=== PATIENT | female | born 1980 | race Caucasian/White ===

== ENCOUNTER 2020-11-09 09:09 | Emergency (ER) | payer BC, SELFPAY ==
[2020-11-09 09:27] VITALS: BP 119/59; PULSE 112; RESP 16; TEMP 36.7; O2SAT 99
--- NOTE | 2020-11-09 09:44 | ED.FEMALEGU ---
HPI - Female Genitourinary General Chief complaint: Urogenital-Female Stated complaint: uti Time Seen by Provider: 11/09/20 09:44 Source: patient, RN notes reviewed and old records reviewed Mode of arrival: ambulatory Limitations: no limitations History of Present Illness HPI Narrative: 40-year-old female who presents to [facility] with complaints of lower back pain, suprapubic pain, burning with urination and also has noted blood in her urine since last night. Patient denies any known fever chills or sweats, denies any nausea or vomiting, denies any vaginal discharge or any concern for STDs.Patient has 3+ glucose in her urine and also trace ketones, patient reports that she is diabetic and admits to not checking her sugar regularly, taking Jardiance and metformin has appointment with PCP next week. MD elicited complaint: dysuria and other (back pain and supra pubic pain) Related Data Allergies Allergy/AdvReac Type Severity Reaction Status Date / Time codeine Allergy Hives Verified 11/09/20 10:08 ibuprofen Allergy Anaphylactic Verified 11/09/20 10:10 Shock Review of Systems Review of Systems: CONSTITUTIONAL: Denies fever, chills, or sweats. EYES: Denies visual changes, redness, or discharge. ENT: Denies rhinorrhea, congestion, sore throat, or otalgia. CARDIOVASCULAR: Denies chest pain, palpitations, or edema. RESPIRATORY: Denies cough or dyspnea. GASTROINTESTINAL: Positive suprapubic abdominal pain,no nausea, vomiting, or diarrhea. GENITOURINARY: Positive dysuria and hematuria. SKIN: Denies rash or itching. MUSCULOSKELETAL: Positive for low back pain, joint pain, or myalgia. NEUROLOGIC: Denies headache, numbness, or weakness. PSYCHIATRIC: Positive history of anxiety or depression. All systems reviewed & are unremarkable except as noted in HPI and below PMFSH Past Medical History Medical History (Updated 11/09/20 @ 10:26 by Ling Townsend NP) Anxiety and depression Diabetes Elevated cholesterol Fracture of ankle Surgical History Surgical History (Updated 11/09/20 @ 10:12 by Ling Townsend NP) History of dilatation and curettage History of nasal surgery nasal fracture repair Previous section Family History Family History (Updated 11/09/20 @ 10:13 by Ling Townsend NP) Father Diabetes mellitus Heart disease Father Acute myocardial infarction Grandparent Diabetes mellitus Acute myocardial infarction Social History Social History (Updated 11/09/20 @ 10:14 by Ling Townsend NP) Smoking packs per day: 0.5 Smoking cigarettes per day: 10.0 Years smoked: 26 Smoking pack-years: 13.00 Smoking status: Current every day smoker Tobacco type: cigarettes Alcohol intake: current Alcohol use details: social Substance use: never Living arrangements: with family Gender identity (if verbalized by the patient): Female Comments At time of signature, agree with nursing past medical, surgical, social and family history. There is no relevant family history pertinent to the presenting complaint Exam Narrative: GENERAL: Well-appearing, well-nourished, and in no acute distress. HEAD: Normocephalic, atraumatic. EYES: PERRLA and EOMI. ENT: Nares clear, no rhinorrhea or epistaxis. Mucous membranes moist.TM's mat with good lght reflex, throat normal with no lesions or exudates or tonsil swelling NECK: Supple. no lymphadenopathy CHEST: Clear to auscultation. No respiratory distress.SAO2 99% on room air HEART: Regular rate and rhythm. No murmur heard. Normal peripheral pulses. ABDOMEN: Soft, tender suprapubic region of abdomen, nondistended, normal active bowel sounds. EXTREMITIES: Normal range of motion. No edema.positive for low back pain. SKIN: Warm, dry, no rash. NEURO: No focal deficits. Alert and oriented x3. Course Vital Signs Vital signs: Vital Signs Temperature 36.7 C 11/09/20 09:27 Pulse Rate 112 H 11/09/20 09:27 Respiratory Rate 16 11/09/20 0
[2020-11-09 10:26] LABS: Glucose Point of Care 147 mg/dl (65-105)
== END 2020-11-09 10:37 | disposition home or self-care (01) ==
PROVIDERS: Emergency Provider Registered Nurse; PCP Physician Assistant
DX: N39.0 Urinary tract infection, site not specified (principal); F17.210 Nicotine dependence, cigarettes, uncomplicated; E11.9 Type 2 diabetes mellitus without complications; E78.00 Pure hypercholesterolemia, unspecified
CPT/HCPCS: 81003; 82948; 87077; 87086; 87088; 87186; 99213; G0463

== ENCOUNTER 2020-12-11 08:26 | Emergency (ER) | payer BC, SELFPAY ==
[2020-12-11 08:42] VITALS: BP 114/76; PULSE 76; RESP 17; TEMP 36.2; O2SAT 100
--- NOTE | 2020-12-11 08:52 | ED.GENADULT ---
HPI - General Adult General Chief complaint: Ear Stated complaint: ear/facial pain Source: patient Mode of arrival: ambulatory Limitations: no limitations History of Present Illness HPI narrative: Patient is a 40-year-old female who presents to the [facility] via POV for evaluation of right ear pain that has been present for approximately 2 days. Additionally, she reports facial swelling, sinus pain, dental pain, fatigue, nasal congestion, and rhinorrhea. She states she has been experiencing the symptoms for approximately 5 days. Tylenol provides minimal relief. Nothing worsens symptoms. She reports she was exposed to Covid from someone at work. She works at a snf. She tests 3 times a week. She states her last test was yesterday and that it was negative. She is fully vaccinated against Covid. Related Data Home Medications Medication Instructions Recorded Confirmed metformin 500 mg PO DIRECTED 12/11/20 12/11/20 sertraline 50 mg PO DIRECTED 12/11/20 12/11/20 simvastatin 40 mg PO DAILY 12/11/20 12/11/20 Allergies Allergy/AdvReac Type Severity Reaction Status Date / Time codeine Allergy Hives Verified 11/09/20 10:08 ibuprofen Allergy Anaphylactic Verified 11/09/20 10:10 Shock Review of Systems Review of Systems: Denies history of COPD, bronchitis, asthma, and pneumonia. Pertinent negatives: fever, sweats, chills, change in appetite, skin color changes, headache, dizziness, lymphadenopathy, ear drainage, tinnitus, vertigo, chest pain, heart murmurs, heart palpitations, shortness of breath, wheezing, cyanosis, hemoptysis, hoarseness, orthopnea, pleuritic pain, nausea, vomiting, diarrhea, and myalgias. [facility] Past Medical History Medical History Anxiety and depression Diabetes Elevated cholesterol Fracture of ankle Surgical History Surgical History History of dilatation and curettage History of nasal surgery nasal fracture repair Previous section Family History Family History Father Diabetes mellitus Heart disease Father Acute myocardial infarction Grandparent Diabetes mellitus Acute myocardial infarction Social History Social History Smoking packs per day: 0.5 Smoking cigarettes per day: 10.0 Years smoked: 26 Smoking pack-years: 13.00 Smoking status: Current every day smoker Tobacco type: cigarettes Alcohol intake: current Alcohol use details: social Substance use: never Gender identity (if verbalized by the patient): Female Comments I have reviewed and agree with the patient's past medical, surgical, social, and family hx as documented by the RN. There is no relevant family history pertinent to the presenting complaint. Exam Narrative: GENERAL: Well-appearing, well-nourished, and in no acute distress. HEAD: Normocephalic, atraumatic. Right maxillary is moderately swollen and tender. EYES: PERRLA and EOMI. No evidence of erythema, swelling, or drainage. ENT: Bilateral external ears and ear canals normal. Moderate amount of clear effusion noted to left TM. Right TM is bulging with marked erythema and opaque fluid. No TM perforation. Nares clear, no rhinorrhea or epistaxis. Bilateral turbinates without erythema/ swelling. Mucous membranes moist and pink. Uvula is midline without erythema and swelling. No evidence of petechial rash, cobblestoning, lesions, ulcers, erythema, swelling, exudates, peritonsillar abscess, tenting, or drooling. Breath odor and voice normal. NECK: Supple. No Lymphadenopathy or nuchal rigidity appreciated. CHEST: Bilateral lung gray are clear to auscultation. No respiratory distress. No evidence of cough or pleuritic cp upon examination. HEART: Regular rate and rhythm. No m
== END 2020-12-11 09:23 | disposition home or self-care (01) ==
PROVIDERS: Emergency Provider Nurse Practitioner Family
DX: H66.001 Acute suppurative otitis media without spontaneous rupture of ear drum, right ear (principal); J01.00 Acute maxillary sinusitis, unspecified; F17.210 Nicotine dependence, cigarettes, uncomplicated; E11.9 Type 2 diabetes mellitus without complications; E78.00 Pure hypercholesterolemia, unspecified; F41.9 Anxiety disorder, unspecified; F32.A Depression, unspecified
CPT/HCPCS: 99213; G0463

== ENCOUNTER 2021-02-06 17:05 | Outpatient (CLI) | payer BC, SELFPAY ==
--- NOTE | ~2021-02-06 | US_ITS ---
EXAMINATION: US thyroid EXAM DATE: 02/06/2021 17:50 INDICATION: Nontoxic goiter. TECHNIQUE: Multiple grayscale and Doppler images of the thyroid were obtained (by a technologist who performed the scan) and subsequently reviewed. Individual nodules and recommendations may be reporte d in accordance with TI-RADS system as designated by the 2017 ACR White Paper TI-RADS committee. The re is no prior study for comparison. FINDINGS: The right thyroid lobe measures 3.7 x 1.6 x 1.8 cm, the left measures 4.7 x 1.2 x 1.3 cm. Mildly hete rogeneous thyroid echogenicity with several subcentimeter right thyroid lobe nodules, not likely clin ically significant. Measurements are within normal size limits. IMPRESSION: Unremarkable thyroid ultrasound exam. Reviewed, dictated and finalized at location A. ITAL CHAPLAIN
== END 2021-02-06 17:06 | disposition home or self-care (01) ==
PROVIDERS: PCP Physician Assistant; Visit Provider Physician Assistant
DX: E04.9 Nontoxic goiter, unspecified (principal)
CPT/HCPCS: 76536

== ENCOUNTER 2021-04-27 17:39 | Emergency (ER) | payer BC, SELFPAY ==
--- NOTE | ~2021-04-27 | XR_ITS ---
EXAMINATION: XR ankle RT min 3V INDICATION: Right ankle pain TECHNIQUE: Four views of the right ankle are obtained. COMPARISON: None available FINDINGS: Ankle soft tissue swelling is present. Bone alignment is normal. No fracture is identified. Posterior and plantar calcaneal enthesophytes are noted. IMPRESSION: 1. Ankle soft tissue swelling without acute osseous abnormality identified. Reviewed, dictated and finalized at location F. RAFT REFUELLER
[2021-04-27 17:42] VITALS: BP 114/60; PULSE 94; RESP 16; TEMP 36.1; O2SAT 100
--- NOTE | 2021-04-27 17:46 | ED.LOWEXIN ---
HPI - Extremity Injury (Lower) General Chief Complaint: Extremity Injury, Lower Stated Complaint: Right Ankle Injury Time Seen by Provider: 04/27/21 17:43 History of Present Illness HPI Narrative: 40-year-old female presents the emergency room status post twisting her ankle. Patient states it was a inversion injury. Patient is ambulatory currently. History of ankle fracture as a child. Related Data Home Medications Medication Instructions Recorded Confirmed metformin 500 mg PO DIRECTED 12/11/20 12/11/20 sertraline 50 mg PO DIRECTED 12/11/20 12/11/20 simvastatin 40 mg PO DAILY 12/11/20 12/11/20 Allergies Allergy/AdvReac Type Severity Reaction Status Date / Time codeine Allergy Hives Verified 04/27/21 17:47 ibuprofen Allergy Anaphylactic Verified 04/27/21 17:47 Shock Review of Systems Review of Systems: CONSTITUTIONAL: Denies fever, chills, or sweats. EYES: Denies visual changes, redness, or discharge. ENT: Denies rhinorrhea, congestion, sore throat, or otalgia. CARDIOVASCULAR: Denies chest pain, palpitations, or edema. RESPIRATORY: Denies cough or dyspnea. GASTROINTESTINAL: Denies abdominal pain, nausea, vomiting, or diarrhea. GENITOURINARY: Denies dysuria or hematuria. SKIN: Denies rash or itching. MUSCULOSKELETAL: Denies back pain, joint pain, or myalgia. Right ankle pain. NEUROLOGIC: Denies headache, numbness, dizziness, or weakness. PSYCHIATRIC: Denies anxiety or depression. [facility] Past Medical History Medical History Anxiety and depression Diabetes Elevated cholesterol Fracture of ankle Surgical History Surgical History History of dilatation and curettage History of nasal surgery nasal fracture repair Previous section Family History Family History Father Diabetes mellitus Heart disease Father Acute myocardial infarction Grandparent Diabetes mellitus Acute myocardial infarction Social History Social History Smoking packs per day: 0.5 Smoking cigarettes per day: 10.0 Years smoked: 26 Smoking pack-years: 13.00 Smoking status: Current every day smoker Tobacco type: cigarettes Alcohol intake: current Alcohol use details: social Substance use: never Gender identity (if verbalized by the patient): Female Exam Narrative: GENERAL: Well-appearing, well-nourished, and in no acute distress. HEAD: Normocephalic, atraumatic. EYES: PERRLA and EOMI. ENT: Nares clear, no rhinorrhea or epistaxis. Mucous membranes moist. Oropharynx without tonsillar hypertrophy exudate or other lesions. Bilateral TMs pearly domínguez nonbulging NECK: Supple. No adenopathy or masses. No carotid bruits or JVD CHEST: Clear to auscultation. No respiratory distress. No wheezes rales or rhonchi HEART: Regular rate and rhythm. No murmur heard. Normal peripheral pulses. ABDOMEN: Soft, nontender, nondistended, normal active bowel sounds. EXTREMITIES: Normal range of motion. No edema. Right ankle: Tenderness to the talofibular ligament, soft tissue swelling to the right lateral malleolus, no joint laxity. Neurovascular distally intact. SKIN: Warm, dry, no rash. NEURO: No focal deficits. Alert and oriented x3. PSYCH: Normal mood and affect. Course Course Emergency Course: Plain films of the right ankle demonstrate no acute bony normalities. Patient refused Vern bandage for comfort. Will discharge patient with right ankle sprain. Discharge Plan Discharge Clinical Impression: Ankle sprain and strain Patient Disposition: Home, Self-Care Condition: Stable Instructions: Antibiotic Form Additional Instructions: Wear Vern bandage for comfort. Tylenol and ibuprofen as needed for pain. Prescriptions: No Action metformin 500 mg tablet 5
== END 2021-04-27 18:46 | disposition home or self-care (01) ==
PROVIDERS: Emergency Provider Nurse Practitioner Family; PCP Physician Assistant
DX: S93.401A Sprain of unspecified ligament of right ankle, initial encounter (principal); S96.911A Strain of unspecified muscle and tendon at ankle and foot level, right foot, initial encounter; E11.9 Type 2 diabetes mellitus without complications; E78.00 Pure hypercholesterolemia, unspecified; F41.9 Anxiety disorder, unspecified; F32.A Depression, unspecified; Z79.84 Long term (current) use of oral hypoglycemic drugs; F17.210 Nicotine dependence, cigarettes, uncomplicated
CPT/HCPCS: 73610; 99283

== ENCOUNTER 2021-05-03 14:45 | Outpatient (CLI) | payer BC, SELFPAY ==
--- NOTE | ~2021-05-03 | XR_ITS ---
XR chest 2V DATE: 05/03/2021 15:04 INDICATION: Chronic cough since Covid infection in March TECHNIQUE: PA and lateral views COMPARISON: None FINDINGS: Normal heart size. No hilar or mediastinal enlargement. No pulmonary infiltrate or consolid ation, pleural effusion or pulmonary vascular congestion or pneumothorax. Included skeletal structures are unremarkable. IMPRESSION: No active cardiopulmonary disease Reviewed, dictated and finalized at location A. SERVICER
== END 2021-05-03 14:46 | disposition home or self-care (01) ==
PROVIDERS: PCP Physician Assistant; Visit Provider Physician Assistant
DX: R05.3 Chronic cough (principal)
CPT/HCPCS: 71046

== ENCOUNTER 2021-06-28 14:50 | Emergency (ER) | payer BC, SELFPAY ==
[2021-06-28 15:23] VITALS: BP 125/72; PULSE 103; RESP 16; TEMP 37; O2SAT 99
--- NOTE | 2021-06-28 15:39 | ED.URI ---
HPI - URI/Sore Throat General Chief Complaint: Upper Respiratory Infection Stated Complaint: sore throat Time Seen by Provider: 06/28/21 15:40 Source: patient and RN notes reviewed Mode of arrival: ambulatory Limitations: no limitations History of Present Illness HPI Narrative: 40-year-old female presented for complaint of sore throat, fever, nausea and diarrhea for 3 days. Fever was 100.6 this morning, she took Tylenol for symptoms. She denies known sick contacts. She is not vaccinated for COVID or flu. She denies cough, shortness of breath, wheezing, dizziness. MD elicited complaint: sore throat Related Data Home Medications Medication Instructions Recorded Confirmed metformin 500 mg PO DIRECTED 12/11/20 06/28/21 sertraline 50 mg PO DIRECTED 12/11/20 06/28/21 simvastatin 40 mg PO DAILY 12/11/20 06/28/21 blood sugar diagnostic [OneTouch 06/28/21 06/28/21 Ultra Test] blood sugar diagnostic [OneTouch 06/28/21 06/28/21 Verio test strips] empagliflozin [Jardiance] 25 mg PO DAILY 06/28/21 06/28/21 terbinafine HCl 250 mg PO DIRECTED 06/28/21 06/28/21 Allergies Allergy/AdvReac Type Severity Reaction Status Date / Time codeine Allergy Hives Verified 06/28/21 15:30 ibuprofen Allergy Anaphylactic Verified 06/28/21 15:30 Shock Review of Systems Review of Systems: CONSTITUTIONAL: Endorses fever EYES: Denies visual changes, redness, or discharge ENT: denies rhinorrhea, congestion, sinus pain, otalgia, reports sore throat CARDIOVASCULAR: Denies chest pain, palpitations, edema RESPIRATORY: denies cough, post nasal drainage. Denies dyspnea GASTROINTESTINAL: Denies abdominal pain, vomiting, reports diarrhea SKIN: Denies rash or itching MUSCULOSKELETAL:denies myalgia NEUROLOGIC: Denies headache PMFSH Past Medical History Medical History Anxiety and depression Diabetes Elevated cholesterol Fracture of ankle Surgical History Surgical History History of dilatation and curettage History of nasal surgery nasal fracture repair Previous section Family History Family History Father Diabetes mellitus Heart disease Father Acute myocardial infarction Grandparent Diabetes mellitus Acute myocardial infarction Social History Social History Smoking packs per day: 0.5 Smoking cigarettes per day: 10.0 Years smoked: 26 Smoking pack-years: 13.00 Smoking status: Current every day smoker Tobacco type: cigarettes Alcohol intake: current Alcohol use details: social Substance use: never Gender identity (if verbalized by the patient): Female Exam Narrative: GENERAL: Ill-appearing, nontoxic HEAD: Normocephalic EYES: conjunctivae clear ENT: Mucous membranes moist. TM pearly domínguez with dull light reflex bilaterally; no tragal tenderness Oropharynx erythematous with tonsillar swelling 2+ and exudate, no drooling, no hoarseness, no trismus, uvula midline. No tripod positioning, muffled voice, soft palate or pharyngeal wall bulging NECK: Supple. No lymphadenopathy CHEST: Clear to auscultation, breath sounds equal. No wheezing, rhonchi, rales, or stridor. No respiratory distress, speaks in full sentences. HEART: Regular rate and rhythm. No murmur heard. SKIN: Warm, dry, no rash. NEURO: Alert and oriented x3. PSYCH: Normal mood and affect Course Course Emergency Course: Patient is aware of diagnosis, understands and agrees to treatment plan. Anticipatory guidance given. Patient agrees to follow-up as directed and is aware of reasons to seek care at the emergency department. Portions of this record may have been created with voice recognition software Level of Care: Express Care Visit Vital Signs Vital signs: Vital Signs Temperature 98.6 F
== END 2021-06-28 15:49 | disposition home or self-care (01) ==
PROVIDERS: Emergency Provider Nurse Practitioner Family; PCP Physician Assistant
DX: J02.0 Streptococcal pharyngitis (principal); F17.210 Nicotine dependence, cigarettes, uncomplicated; E11.9 Type 2 diabetes mellitus without complications; E78.00 Pure hypercholesterolemia, unspecified; F41.9 Anxiety disorder, unspecified; F32.A Depression, unspecified; Z28.310 Unvaccinated for COVID-19
CPT/HCPCS: 87880; 99213; G0463

== ENCOUNTER 2021-11-26 15:18 | Emergency (ER) | payer BC, SELFPAY ==
[2021-11-26 15:26] VITALS: BP 106/46; PULSE 97; RESP 16; TEMP 36.8; O2SAT 99
--- NOTE | 2021-11-26 15:26 | ED.URI ---
HPI - URI/Sore Throat General Chief Complaint: Upper Respiratory Infection Stated Complaint: sore throat Time Seen by Provider: 11/26/21 15:26 Source: patient, RN notes reviewed and old records reviewed Mode of arrival: ambulatory Limitations: no limitations History of Present Illness HPI Narrative: 41-year-old female presents to the [facility] with complaints of a sore throat since Saturday, 4 days ago. Has taken Tylenol for pain. Has a history of strep. Denies fevers, chest pain, abdominal pain. Able to swallow liquids. Pain with eating solid. MD elicited complaint: sore throat Related Data Home Medications Medication Instructions Recorded Confirmed metformin 500 mg tablet 500 mg PO DIRECTED 12/11/20 11/26/21 sertraline 50 mg tablet 50 mg PO DIRECTED 12/11/20 11/26/21 simvastatin 40 mg tablet 40 mg PO DAILY 12/11/20 11/26/21 empagliflozin 25 mg tablet 25 mg PO DAILY 06/28/21 11/26/21 (Jardiance) bupropion HCl 150 mg tablet,12 hr 150 mg PO DAILY 11/26/21 11/26/21 sustained-release norethindrone (contraceptive) 0.35 0.3 mg PO DAILY 11/26/21 11/26/21 mg tablet Allergies Allergy/AdvReac Type Severity Reaction Status Date / Time codeine Allergy Hives Verified 11/26/21 15:23 ibuprofen Allergy Anaphylactic Verified 11/26/21 15:23 Shock Review of Systems Review of Systems: All systems reviewed & are unremarkable except as noted in HPI and below Constitutional: Constitutional: Reports no additional constitutional complaints, Denies chills and Denies fever(s) Eyes: Eyes: Reports no additional eye complaints ENT: Reports as per HPI and Reports sore throat Cardiovascular: Cardiovascular: Reports no additional cardiovascular complaints Respiratory: Respiratory: Reports no additional respiratory complaints Gastrointestinal: Gastrointestinal: Reports no additional gastrointestinal complaints Musculoskeletal: Musculoskeletal: Reports no additional musculoskeletal complaints Integumentary/Breasts: Skin/Breast: Reports system reviewed and no additional complaints, except as docu Neurologic: Reports system reviewed and no additional complaints, except as documented Psychiatric: Psychiatric: Reports no additional psychiatric complaints Allergic/Immunologic: Allergic/Immunologic: Reports no additional allergic/immunologic complaints PMFSH Past Medical History Medical History Anxiety and depression Diabetes Elevated cholesterol Fracture of ankle Surgical History Surgical History History of dilatation and curettage History of nasal surgery nasal fracture repair Previous section Family History Family History Father Diabetes mellitus Heart disease Father Acute myocardial infarction Grandparent Diabetes mellitus Acute myocardial infarction Social History Social History Smoking packs per day: 0.5 Smoking cigarettes per day: 10.0 Years smoked: 26 Smoking pack-years: 13.00 Smoking status: Current every day smoker Tobacco type: cigarettes Alcohol intake: current Alcohol use details: social Substance use: never Gender identity (if verbalized by the patient): Female Comments At the time of my signature, I reviewed and agree with the nursing past medical, surgical, social, and family history. There is no relevant family history pertinent to the patient complaint. Exam Const: General: healthy appearing, no acute distress and alert Nutritional Appearance: well nourished and obese Orientation/consciousness: patient oriented x3 Limitations: no limitations HENMT: Head: normal to inspection Ears: external ears normal, TM's normal bilaterally and EAC's normal General nose exam: Normal external nose present and Normal nares present Throat:
== END 2021-11-26 15:43 | disposition home or self-care (01) ==
PROVIDERS: Emergency Provider Nurse Practitioner; PCP Physician Assistant
DX: J02.0 Streptococcal pharyngitis (principal); Z20.822 Contact with and (suspected) exposure to COVID-19; F17.210 Nicotine dependence, cigarettes, uncomplicated; E11.9 Type 2 diabetes mellitus without complications; E78.00 Pure hypercholesterolemia, unspecified; F41.9 Anxiety disorder, unspecified; F32.A Depression, unspecified
CPT/HCPCS: 87880; 99213; G0463

== ENCOUNTER 2022-12-17 08:33 | Emergency (ER) | payer BC, SELFPAY ==
[2022-12-17 08:53] VITALS: BP 103/58; PULSE 116; RESP 20; TEMP 38.2; O2SAT 100
--- NOTE | 2022-12-17 09:15 | ED.FEVER ---
HPI - Fever General Chief Complaint: Fever Stated Complaint: throat/chest pain Source: patient and family Mode of arrival: ambulatory Limitations: no limitations History of Present Illness HPI Narrative: 42-year-old female presents to [facility] with complaints of fevers up to 100.7, body aches, chills, sore throat, cough and mild shortness of breath since last night. Patient has not tried taking any [id number] medications for symptoms. 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 Patient reports that she had COVID approximately 2 months ago. Patient is a smoker. Patient denies nausea, vomiting, diarrhea or wheezing. Patient denies recent travel. MD elicited complaint: fever Onset (ago): day(s) (1) Exacerbating factors: nothing Relieving factors: nothing Associated symptoms: sore throat and cough Treatments prior to arrival fever: none Related Data Home Medications Medication Instructions Recorded Confirmed metformin 500 mg tablet 500 mg PO DIRECTED 12/11/20 12/17/22 sertraline 50 mg tablet 50 mg PO DIRECTED 12/11/20 12/17/22 simvastatin 40 mg tablet 40 mg PO DAILY 12/11/20 12/17/22 empagliflozin 25 mg tablet 25 mg PO DAILY 06/28/21 12/17/22 (Jardiance) bupropion HCl 150 mg tablet,12 hr 150 mg PO DAILY 11/26/21 12/17/22 sustained-release norethindrone (contraceptive) 0.35 0.3 mg PO DAILY 11/26/21 12/17/22 mg tablet Allergies Allergy/AdvReac Type Severity Reaction Status Date / Time codeine Allergy Hives Verified 12/17/22 08:52 ibuprofen Allergy Anaphylactic Verified 12/17/22 08:52 Shock Review of Systems Constitutional: Constitutional: Reports chills, Reports fatigue and Reports fever(s) ENT: Denies dizziness, Denies epistaxis, Denies nasal congestion and Reports sore throat Cardiovascular: Cardiovascular: Denies chest pain Respiratory: Respiratory: Reports cough, Reports dyspnea and Denies wheezing Gastrointestinal: Gastrointestinal: Denies diarrhea, Denies nausea and Denies vomiting Musculoskeletal: Musculoskeletal: Denies arthralgias and Denies joint swelling Integumentary/Breasts: Skin/Breast: Denies erythema, Denies rash and Denies skin ulcer Neurologic: Denies dizziness, Denies syncope and Denies headache(s) [facility] Past Medical History Medical History Anxiety and depression Diabetes Elevated cholesterol Fracture of ankle Surgical History Surgical History History of dilatation and curettage History of nasal surgery nasal fracture repair Previous section Family History Family History Father Diabetes mellitus Heart disease Father Acute myocardial infarction Grandparent Diabetes mellitus Acute myocardial infarction Social History Social History Smoking packs per day: 0.5 Smoking cigarettes per day: 10.0 Years smoked: 26 Smoking pack-years: 13.00 Smoking status: Current every day smoker Tobacco type: cigarettes Alcohol intake: current Alcohol use details: social Substance use: never Living arrangements: with family Gender identity (if verbalized by the patient): Female Comments At time of signature, I agree with nursing past medical, surgical, social and family history. There is no relevant family history pertinent to the presenting complaint. Exam Const: General: healthy appearing and no acute distress Nutritional Appearance: well nourished Orientation/consciousness: patient oriented x3 Limitations: no limitations HENMT: Head: normal to inspection Ears: external ears normal, TM's normal bilaterally and EAC's normal Mouth: Yes Normal oral and palatal mucosa present, Yes lip normal and Yes moist mucous membranes Teeth and gingiva: dentition normal Throat: uvula midline Other: Moderate e
== END 2022-12-17 10:31 | disposition home or self-care (01) ==
PROVIDERS: Emergency Provider Nurse Practitioner Family; PCP Physician Assistant
DX: J02.0 Streptococcal pharyngitis (principal); Z20.822 Contact with and (suspected) exposure to COVID-19; F17.210 Nicotine dependence, cigarettes, uncomplicated; E11.9 Type 2 diabetes mellitus without complications; Z79.84 Long term (current) use of oral hypoglycemic drugs; E78.00 Pure hypercholesterolemia, unspecified; F41.9 Anxiety disorder, unspecified; F32.A Depression, unspecified
CPT/HCPCS: 87426; 87804; 87880; 99213; C9803; G0463

== ENCOUNTER 2023-10-27 15:55 | Emergency (ER) | payer BC, SELFPAY ==
[2023-10-27 16:16] VITALS: BP 119/70; PULSE 96; RESP 16; TEMP 37.2; O2SAT 99
[2023-10-27 16:54] LABS: EDSTREPNEGPOS1 Negative
--- NOTE | 2023-10-27 17:17 | ED.GENADULT ---
HPI - General Adult General Chief complaint: Upper Respiratory Infection Stated complaint: throat hurts Source: patient Mode of arrival: ambulatory Limitations: no limitations History of Present Illness HPI narrative: Patient presents for evaluation of sore throat since this morning. She has a history of recurrent strep and this feels similar. 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 No objective fever. She reports chills and left sided ear pain. No nausea, vomiting, diarrhea or cough. She does vape. She tried taking tylenol for her symptoms. Related Data Home Medications Medication Instructions Recorded Confirmed sertraline 50 mg tablet 50 mg PO DIRECTED 12/11/20 10/27/23 bupropion HCl 150 mg tablet,12 hr 150 mg PO DAILY 11/26/21 10/27/23 sustained-release norethindrone (contraceptive) 0.35 0.3 mg PO DAILY 11/26/21 12/17/22 mg tablet valacyclovir 500 mg tablet 500 mg PO DAILY 10/27/23 10/27/23 Allergies Allergy/AdvReac Type Severity Reaction Status Date / Time codeine Allergy Hives Verified 10/27/23 16:08 ibuprofen Allergy Anaphylactic Verified 10/27/23 16:08 Shock Review of Systems Review of Systems: CONSTITUTIONAL: Reports chills. Denies fever, or sweats. EYES: Denies visual changes, redness, or discharge. ENT: Reports sore throat and left sided ear pain. Denies rhinorrhea and congestion CARDIOVASCULAR: Denies chest pain, palpitations, or edema. RESPIRATORY: Denies cough or dyspnea. GASTROINTESTINAL: Denies abdominal pain, nausea, vomiting, or diarrhea. GENITOURINARY: Denies dysuria or hematuria. SKIN: Denies rash or itching. MUSCULOSKELETAL: Denies back pain, joint pain, or myalgia. NEUROLOGIC: Denies headache, numbness, dizziness, or weakness. PSYCHIATRIC: Denies anxiety or depression. [facility] Past Medical History Medical History Anxiety and depression Diabetes Elevated cholesterol Fracture of ankle Surgical History Surgical History History of dilatation and curettage History of nasal surgery nasal fracture repair Previous section Family History Family History Father Diabetes mellitus Heart disease Father Acute myocardial infarction Grandparent Diabetes mellitus Acute myocardial infarction Social History Social History Smoking packs per day: 0.5 Smoking cigarettes per day: 10.0 Years smoked: 26 Smoking pack-years: 13.00 Smoking status: Current every day smoker Tobacco type: e-cigarettes/vaping Alcohol intake: current Alcohol use details: social Substance use: never Living arrangements: with family Gender identity (if verbalized by the patient): Female Exam Narrative: GENERAL: Well-appearing, well-nourished, and in no acute distress. HEAD: Normocephalic, atraumatic. EYES: PERRLA and EOMI. ENT: Nares clear, no rhinorrhea or epistaxis. Mucous membranes moist. There is posterior pharyngeal erythema without exudate. Uvula is midline. Bilateral TMs pearly domínguez nonbulging NECK: Supple. No adenopathy or masses. No carotid bruits or JVD CHEST: Clear to auscultation. No respiratory distress. No wheezes rales or rhonchi HEART: Regular rate and rhythm. No murmur heard. Normal peripheral pulses. ABDOMEN: Soft, nontender, nondistended, normal active bowel sounds. EXTREMITIES: Normal range of motion. No edema. SKIN: Warm, dry, no rash. NEURO: No focal deficits. Alert and oriented x3. PSYCH: Normal mood and affect. Course Course Emergency Course: This is a 43-year-old female who presented for evaluation of sore throat. Rapid strep negative. She has a history of strep and this feels similar. Through shared decision making opted to
== END 2023-10-27 17:17 | disposition home or self-care (01) ==
PROVIDERS: Emergency Provider Nurse Practitioner; PCP Physician Assistant
DX: J02.9 Acute pharyngitis, unspecified (principal); F17.290 Nicotine dependence, other tobacco product, uncomplicated; E11.9 Type 2 diabetes mellitus without complications; E78.00 Pure hypercholesterolemia, unspecified; F41.9 Anxiety disorder, unspecified; F32.A Depression, unspecified
CPT/HCPCS: 87081; 87880; 99213; G0463

== ENCOUNTER 2024-06-07 19:49 | Emergency (ER) | payer OTHER, SELFPAY ==
[2024-06-07 20:04] VITALS: BP 133/50; PULSE 106; RESP 16; TEMP 37.2; O2SAT 99
[2024-06-07 20:08] LABS: EDUAAPPEAR Cloudy; EDUABILI Negative (Negative); EDUABLOOD 3+ (Negative); EDUACOLOR1 Amber; EDUAGLUCOSE 3+ (Negative); EDUAKETONE Trace (Negative); EDUALEUKO Trace (Negative); EDUANITRATE Positive (Negative); EDUAPH 6.5; EDUAPROTEIN 1+ (Negative); EDUASPGRAVITY 1.015
--- NOTE | 2024-06-07 20:39 | ED_ITS ---
HPI - Female Genitourinary General Chief complaint: Urogenital-Female Stated complaint: blood in urine Time Seen by Provider: 06/07/24 20:30 Source: patient and RN notes reviewed Mode of arrival: ambulatory Limitations: no limitations History of Present Illness HPI Narrative: Patient presents today with a 2 day history of dysuria, urgency, frequency, with lower abdominal pain that started today. She has taken Aleve with some mild relief. Denies fever, nausea, vomiting, diarrhea, flank pain. History of diabetes for which she takes metformin. Related Data Home Medications ?Medication ?Instructions ?Recorded ?Confirmed ?Last Taken ?Type sertraline 50 mg tablet 50 mg PO DIRECTED 12/11/20 10/27/23 Unknown History norethindrone (contraceptive) 0.35 0.3 mg PO DAILY 11/26/21 12/17/22 Unknown History mg tablet valacyclovir 500 mg tablet 500 mg PO DAILY 10/27/23 10/27/23 Unknown History bupropion HCl 150 mg 24 hr tablet, mg PO 06/07/24 Unknown History extended release metformin 500 mg tablet mg 06/07/24 Unknown History simvastatin 40 mg tablet mg 06/07/24 Unknown History Allergies Allergy/AdvReac Type Severity Reaction Status Date / Time codeine Allergy Hives Verified 06/07/24 20:07 ibuprofen Allergy Anaphylactic Verified 06/07/24 20:07 Shock Review of Systems Review of Systems: CONSTITUTIONAL: Denies body aches, fever, chills, or sweats. EYES: Denies visual changes, redness, or discharge. ENT: Denies rhinorrhea, congestion, sore throat, or otalgia. CARDIOVASCULAR: Denies chest pain, palpitations, or edema. RESPIRATORY: Denies cough or dyspnea. GASTROINTESTINAL: Denies nausea, vomiting, or diarrhea. GENITOURINARY: + dysuria, frequency, urgency, suprapubic pain SKIN: Denies rash, itching, or wounds. MUSCULOSKELETAL: Denies back pain, joint pain, or myalgia. NEUROLOGIC: Denies headache, numbness, tingling, or weakness. PSYCH: Denies depression or anxiety. [facility] Past Medical History Medical History Fracture of ankle Anxiety and depression Elevated cholesterol Diabetes Surgical History Surgical History Previous section History of nasal surgery nasal fracture repair History of dilatation and curettage Family History Family History Father Diabetes mellitus Heart disease Father Acute myocardial infarction Grandparent Diabetes mellitus Acute myocardial infarction Social History Social History Smoking packs per day: 0.5 Smoking cigarettes per day: 10.0 Years smoked: 26 Smoking pack-years: 13.00 Smoking status: Current every day smoker Tobacco type: e-cigarettes/vaping Alcohol intake: current Alcohol use details: social Substance use: never Living arrangements: with family Gender identity (if verbalized by the patient): Female Comments At time of signature, I have reviewed and agree with nursing past medical, surgical, social and family history unless otherwise noted. Please see nursing chart for further information. There is no relevant family history pertinent to the presenting complaint Exam Narrative: GENERAL: Well-appearing, well-nourished, and in no acute distress. HEAD: Normocephalic, atraumatic. EYES: EOMI. No redness or drainage. Conjunctivae normal. ENT: Mucous membranes pink and moist. NECK: Normal AROM. CHEST: No respiratory distress. Clear to auscultation. HEART: Regular rate and rhythm. No murmur appreciated. Normal peripheral pulses. ABDOMEN: Soft, nondistended, normal active bowel sounds. + mild suprapubic tenderness.-CVAT MUSCULOSKELETAL: No bony tenderness. EXTREMITIES: Normal range of motion. No edema. SKIN: Warm, dry, no rash. Capillary refill normal. Normal skin turgor. NEURO: No focal deficits. Alert and oriented x3. Gait steady. PSYCH: Normal affect. No signs of depression or anxiety. Course Course Level of Care: Express Care Visit Vital Signs Vital signs: Vital Signs Temperature 98.9 F 06/07/24 20:04 Pulse Rate 106 H 06/07/24 20:04 Respiratory Rate 16 06/07/24 20:04 Blood Pressure 133/50 L 06/07/24 20:04 Pulse Oximetry 99 06/07/24 20:04 Oxygen Delivery Room Air 06/07/24 20:04 Temperature 98.9 F 06/07/24 20:04 Pulse Rate 106 H 06/07/24 20:04 Respiratory Rate 16 06/07/24 20:04 Blood Pressure 133/50 L 06/07/24 20:04 Pulse Oximetry 99 06/07/24 20:04 Oxygen Delivery Room Air 06/07/24 20:04 Reviewed MDM - Female Genitourinary MDM Narrative Medical decision making narrative: Urinalysis is consistent with UTI. Prescription for Keflex sent to pharmacy. Culture pending. Anticipatory guidance given. Strict ED precautions given. Differential Diagnosis Differential diagnosis: Likely urinary tract infection, cystitis and other (Pyelonephritis) Lab Data Attestation: I reviewed the patient's lab results. Labs: Lab Results 06/07/24 Range/Units 20:06 POC Urine Color [place] POC Urine Clarity Cloudy POC Urine pH 6.5 POC Ur Specif [place] 1.015 POC Urine Protein 1+ (Negative) POC Ur Glucose (UA) 3+ (Negative) POC Urine Ketones Trace (Negative) POC Urine Blood 3+ (Negative) POC Urine Nitrite Positive (Negative) POC Urine Bilirubin Negative (Negative) POC Urine Urobilinogen 1.0 POC U Leukocyte Esteras Trace (Negative) Critical Care Time Critical Care Time Critical Care Time: No Discharge Plan Discharge Clinical Impression: Urinary tract infection Qualifiers: Urinary tract infection type: acute cystitis Hematuria presence: with hematuria Qualified Code(s): N30.01 - Acute cystitis with hematuria Patient Disposition: Home, Self-Care Condition: Stable Instructions: Antibiotic Form, Urinary Tract Infection in Women (DC) Additional Instructions: Your urine shows infection today. Take Keflex as prescribed until gone. Your urine will be sent of for a culture to identify what type of bacteria is causing your infection. If the culture shows that your medication will not get rid of your infection, you will be notified and a new antibiotic will be called in for you. If your symptoms worsen to include fever, sweats, chills, nausea, vomiting, severe abdominal or back pain, please go to the ER for further evaluation. Your blood pressure was elevated above 120/80 today at Urgent Care. This puts you above the threshold for follow up. Please schedule a followup visit with your personal physician as soon as possible, for further evaluation and treatment. Even blood pressure exceeding 120/80 may indicate pre-hypertension. Patient Language: Maori Prescriptions: New cephalexin 500 mg capsule 500 mg PO Q6H 7 Days Qty: 28 0RF No Action norethindrone (contraceptive) 0.35 mg tablet 0.3 mg PO DAILY valacyclovir 500 mg tablet 500 mg PO DAILY metformin 500 mg tablet simvastatin 40 mg tablet bupropion HCl 150 mg tablet extended release 24 hr PO sertraline 50 mg tablet 50 mg PO DIRECTED Follow-up/Referrals: Sharita,NIVIA Benito [Primary Care Provider] - Time of Disposition: 20:39
== END 2024-06-07 20:39 | disposition home or self-care (01) ==
PROVIDERS: Emergency Provider Nurse Practitioner; PCP Physician Assistant
DX: N30.01 Acute cystitis with hematuria (principal); B96.20 Unspecified Escherichia coli [E. coli] as the cause of diseases classified elsewhere; E11.9 Type 2 diabetes mellitus without complications; Z79.84 Long term (current) use of oral hypoglycemic drugs; E78.00 Pure hypercholesterolemia, unspecified; F41.9 Anxiety disorder, unspecified; F32.A Depression, unspecified; F17.210 Nicotine dependence, cigarettes, uncomplicated; F17.290 Nicotine dependence, other tobacco product, uncomplicated
CPT/HCPCS: 81003; 87086; 87186; 99213; G0463

== ENCOUNTER 2024-10-29 21:10 | Emergency (ER) | payer SELFPAY ==
[2024-10-29] VITALS (14 sets, daily range): BP systolic 107–120; BP diastolic 40–70; PULSE 107–136; RESP 21–34; TEMP 38.4–39.8; O2SAT 93–96
--- NOTE | ~2024-10-29 | XR_ITS ---
EXAMINATION: XR chest 1V portable 10/29/2024 22:08 INDICATION: Pneumonia PROCEDURE: AP portable chest COMPARISON: 05/03/2021 FINDINGS: The lungs are clear. The cardiomediastinal silhouette is within normal limits. There are no pleural effusions. There is no pneumothorax suspected. IMPRESSION: 1: NO ACUTE CARDIOPULMONARY DISEASE. Reviewed, dictated and finalized at location O.
--- NOTE | ~2024-10-29 | CT_ITS ---
EXAMINATION: CT diagnostic chest wo con DATE: 10/29/2024 22:54 INDICATION: Pneumonia TECHNIQUE: Computed tomography (CT) of the chest was performed without intravenous contrast. The dose-length product was 735.34 mGy-cm. Automated exposure control and iterative reconstruction technique were employed. COMPARISON: None FINDINGS: No thoracic lymphadenopathy. Heart size normal. No significant pleural or pericardial effusion. There is cholelithiasis. No pneumothorax. No endobronchial lesions. No focal airspace consolidation. There is lower cervical and thoracic spondylosis. No acute bone or joint abnormality. IMPRESSION: 1. No acute abnormality of the chest. 2: Cholelithiasis. Reviewed, dictated and finalized at location O.
--- NOTE | 2024-10-29 21:20 | ECG_ITS ---
Test Date: 2024-10-29 21:23:10 Measurements Intervals [place] Rate: 133 P: 46 OK: 136 QRS: -70 QRSD: 108 T: 70 QT: 351 QTc: 523 Interpretive Statements SINUS TACHYCARDIA INCOMPLETE RIGHT BUNDLE BRANCH BLOCK LEFT ANTERIOR FASCICULAR BLOCK BORDERLINE ST-T WAVE ABNORMALITY- HIGH LATERAL LEADS ABNORMAL ECG No previous ECG available for comparison Electronically Signed On 10-30-2024 06:36:01 CDT by Branden York D.O.
[2024-10-29] MEDS: ACETAMINOPHEN 500 MG TABLET 1000 MG PO (21:42)
[2024-10-29] MEDS: ONDANSETRON INJ 4 MG/2 ML VIAL IV PUSH (21:42)
[2024-10-29] MEDS: SODIUM CHLORIDE 0.9% IV 2,000 ML 999 ML IV CONT (21:43)
[2024-10-29 21:52] LABS: Hematocrit 39.7 % (37.0-47.0); Hemoglobin 13.5 g/dL (12.0-15.0); Immature Granulocyte Percent A 0.3 % (0-0.5); Lymphocytes Absolute Auto 1.21 K/mm3 (0.9-3.2); Mean Corpuscular HGB Conc 34.0 g/dl (32-36); Mean Corpuscular Hemoglobin 30.2 pg (26-34); Mean Corpuscular Volume 88.8 fl (80-100); Nucleated Red Blood Cells Absolute Auto 0.000 K/mm3 (0.0-0.012); Nucleated Red Blood Cells Perc 0.0 % (0.0-0.2); Platelet Count Result 176 k/mm3 (150-375); Red Blood Count 4.47 M/mm3 (4.2-5.4); White Blood Count 10.1 K/mm3 (4.5-10.0)
[2024-10-29 22:02] LABS: Alanine Aminotransferase 38 U/L (6-35); Albumin Level 4.0 g/dL (3.5-5.1); Alkaline Phosphatase 72 U/L (38-126); Anion Gap 19 mmol/L (4-12); Aspartate Amino Transferase 42 U/L (14-36); Bilirubin,Total 0.9 mg/dL (0.2-1.3); Blood Urea Nitrogen 14 mg/dL (7-17); Calcium 8.9 mg/dL (8.4-10.2); Carbon Dioxide 15 mmol/L (22-30); Chloride 100 mmol/L (98-107); Estimated CRCL calculation 116 ml/min; Estimated Glomerular Filt Rate > 60; Glucose 348 mg/dL (65-110); Potassium 4.2 mmol/L (3.4-5.0); Sodium 134 mmol/L (137-145); Total Protein 7.7 g/dL (6.3-8.2)
[2024-10-29 22:25] LABS: Influenza A QL RT-PCR Negative (Negative); Influenza B QL RT-PCR Negative (Negative); RSV RNA, RT-PCR Negative (Negative); SARS-CoV-2 RNA PCR Negative (Negative)
[2024-10-29 22:39] LABS: BEDSIDEPREGUCG Negative (Negative)
[2024-10-29 22:50] LABS: Add Urine Microscopic? YES; Appearance Urine Cloudy (Clear); Budding Yeast Urine Present /hpf; Glucose Urine UA 3+ mg/dL (Negative); Leukocyte Esterase Ur 1+ LEU/UL (Negative); Need Manual Microscopic Reviewed; Nitrate Urine Negative (Negative); Specific Grav Ur 1.025 (1.001-1.035)
[2024-10-29] MEDS: LACTATED RINGERS 1,000 ML 999 ML IV CONT (23:30)
[2024-10-30] VITALS (9 sets, daily range): BP systolic 103–123; BP diastolic 53–65; PULSE 88–101; RESP 20–23; TEMP 37.4; O2SAT 94–99
[2024-10-30 00:29] LABS: Fractional Inspired Oxygen 21 %; HCO3 VBG 20.2 mEq/l (24.0-30.0); PCO2 VBG 31.4 mmHg (42.0-48.0); PO2 VBG 52.0 mmHg (35.0-45.0)
[2024-10-30] MEDS: cefTRIAXone 1 GM in SODIUM CHLORIDE 0.9% IV 50 ML 100 ML IVPB (00:29)
[2024-10-30 00:30] LABS: Liters per Minute 0.0 LPM; pH VBG 7.426 (7.300-7.400)
[2024-10-30 00:40] LABS: Anion Gap 8 mmol/L (4-12); Blood Urea Nitrogen 14 mg/dL (7-17); Calcium 8.0 mg/dL (8.4-10.2); Carbon Dioxide 20 mmol/L (22-30); Chloride 105 mmol/L (98-107); Estimated CRCL calculation 129 ml/min; Estimated Glomerular Filt Rate > 60; Glucose 263 mg/dL (65-110); Potassium 3.6 mmol/L (3.4-5.0); Sodium 133 mmol/L (137-145)
--- NOTE | 2024-10-30 00:49 | ED_ITS ---
HPI - General Adult General Chief complaint: Shortness of Breath/Dyspnea Stated complaint: can't breathe Time Seen by Provider: 10/29/24 21:16 History of Present Illness HPI narrative: This is a 44-year-old female presenting ED flu-like symptoms. Patient developed nausea vomiting and diarrhea earlier today. She also has a sharp pain in the center of her chest that is worse when she is vomiting. She says is hard to breathe when she is vomiting. She has also had fevers. She denies abdominal pain. She denies dysuria but states she has urinary urgency and frequency. Patient is type 2 diabetic. She is not compliant with her metformin. Patient has a sick child at home with similar symptoms. Related Data Home Medications ?Medication ?Instructions ?Recorded ?Confirmed ?Last Taken ?Type sertraline 50 mg tablet 50 mg PO DIRECTED 1 10/27/23 Unknown History norethindrone (contraceptive) 0.35 0.3 mg PO DAILY 12/17/22 Unknown History mg tablet valacyclovir 500 mg tablet 500 mg PO DAILY 10/27/23 Unknown History bupropion HCl 150 mg 24 hr tablet, mg PO 06/07/24 Unk nown History extended release metformin 500 mg tablet mg 06/07/24 Unknown History simvastatin 40 mg tablet mg 06/07/24 Unknown History Allergies Allergy/AdvReac Type Severity Reaction Status Date / Time codeine Allergy Hives Verified 06/07/24 20:07 ibuprofen Allergy Anaphylactic Verified 06/07/24 20:07 Shock [facility] Past Medical History Medical History Fracture of ankle Anxiety and depression Elevated cholesterol Diabetes Surgical History Surgical History Previous section History of nasal surgery nasal fracture repair History of dilatation and curettage Family History Family History Father Diabetes mellitus Heart disease Father Acute myocardial infarction Grandparent Diabetes mellitus Acute myocardial infarction Social History Social History Smoking packs per day: 0.5 Smoking cigarettes per day: 10.0 Years smoked: 26 Smoking pack-years: 13.00 Smoking status: Current every day smoker Tobacco type: e-cigarettes/vaping Alcohol intake: current Alcohol use details: social Substance use: never Living arrangements: with family Gender identity (if verbalized by the patient): Female Exam 2 Narrative: APPEARANCE: Patient is actively vomiting Head: atraumatic. EYES: EOMI, NOSE: Atraumatic NECK: Trachea midline RESPIRATORY: No increased rate of breathing clear to auscultation CARDIOVASCULAR: Tachycardic, no peripheral edema ABDOMINAL: Non-distended soft nontender no guarding rebound MUSCULOSKELETAl: No obvious deformities NEURO: Alert. Moving 4/4 extremities SKIN:: Warm to touch PSYCHIATRIC: Normal affect Course Vital Signs Vital signs: Vital Signs Temperature 103.6 F H 10/29/24 21:21 Pulse Rate 133 H 10/29/24 21:21 Respiratory Rate 34 H 10/29/24 21:21 Blood Pressure 109/40 L 10/29/24 21:21 Pulse Oximetry 95 10/29/24 21:21 Oxygen Delivery Room Air 10/29/24 21:21 Temperature 99.4 F 10/30/24 00:08 Pulse Rate 101 H 10/30/24 00:01 Respiratory Rate 24 H 10/29/24 23:45 Blood Pressure 123/65 10/30/24 00:00 Pulse Oximetry 94 10/30/24 00:01 Oxygen Delivery Room Air 10/29/24 21:21 Medical Decision Making [facility] Narrative Medical decision making narrative: -Course: 44-year-old female presenting with flu-like symptoms. On arrival she was febrile with appropriate tachycardia. She is given Tylenol and fluids with normalization of temperature and heart rate. Laboratory studies showed a white count of 10.1. VBG showed a pH of 7.4. Initial metabolic panel showed a anion gap acidosis however this corrected with IV fluids. Patient is type 2 diabetic so this is not DKA is much more likely a starvation ketosis/dehydration. Chest x-ray was clear but given her chest pain and fever a CT chest was ordered to evaluate for pneumonia. No evidence of pneumonia. Urine with 21-50 white blood cells and +1 leuk esterase. She has not had dysuria but she does have urgency frequency. She will be treated with cefdinir to cover UTI due to diet uncontrolled diabetes although her presentation is more consistent with viral syndrome.. On re-evaluation patient is feeling much better. She is requesting discharge home. She will be discharged home with strict return precautions. -DDX includes but is not limited to: Viral syndrome, flu COVID pneumonia UTI sepsis dehydration DKA HHS -Co-morbidities complicating care: Diabetes Vital Signs Vital Signs: Vital Signs Temperature 103.6 F H 10/29/24 21:21 Pulse Rate 133 H 10/29/24 21:21 Respiratory Rate 34 H 10/29/24 21:21 Blood Pressure 109/40 L 10/29/24 21:21 Pulse Oximetry 95 10/29/24 21:21 Oxygen Delivery Room Air 10/29/24 21:21 Temperature 99.4 F 10/30/24 00:08 Pulse Rate 101 H 10/30/24 00:01 Respiratory Rate 24 H 10/29/24 23:45 Blood Pressure 123/65 10/30/24 00:00 Pulse Oximetry 94 10/30/24 00:01 Oxygen Delivery Room Air 10/29/24 21:21 Lab Data 10/29/24 21:41 10/30/24 00:24 Labs: Lab Results 10/29/24 10/29/24 10/29/24 Range/Units 21:41 21:59 22:37 WBC 10.1 H (4.5-10.0) K/mm3 RBC 4.47 (4.2-5.4) M/mm3 Hgb 13.5 (12.0-15.0) g/dL Hct 39.7 (37.0-47.0) % MCV 88.8 (80-100) fl MCH 30.2 (26-34) pg MCHC 34.0 (32-36) g/dl RDW 12.3 (11.5-14.5) % Plt Count 176 (150-375) k/mm3 MPV 12.3 H (7.4-10.4) fl Immature Gran % (Auto) 0.3 (0-0.5) % Neut % (Auto) 83.4 H (45.5-73.1) % Lymph % (Auto) 11.9 L (18.3-44.2) % [place] % (Auto) 4.0 (2.6-8.5) % Eos % (Auto) 0.1 (0-4.4) % Baso % (Auto) 0.3 (0.2-1.2) % Lymph # (Auto) 1.21 (0.9-3.2) K/mm3 [place] # (Auto) 0.4 (0.1-0.6) K/mm3 Eos # (Auto) 0.0 (0-0.3) K/mm3 Baso # (Auto) 0.0 (0.0-0.1) K/mm3 Abs Immat Gran (auto) 0.03 (0.00-0.031) K/mm3 Absolute Neuts (auto) 8.5 H (1.3-6.7) K/mm3 Absolute Nucleated RBC 0.000 (0.0-0.012) K/mm3 Nucleated RBC % 0.0 (0.0-0.2) % Sodium 134 L (137-145) mmol/L Potassium 4.2 (3.4-5.0) mmol/L Chloride 100 (98-107) mmol/L Carbon Dioxide 15 L (22-30) mmol/L Anion Gap 19 H (4-12) mmol/L BUN 14 (7-17) mg/dL Creatinine 0.64 L (0.7-1.0) mg/dL Estim Creat Clear Calc 116 ml/min Estimated GFR > 60 (59 - ) Glucose 348 H (65-110) mg/dL Calcium 8.9 (8.4-10.2) mg/dL Total Bilirubin 0.9 (0.2-1.3) mg/dL AST 42 H (14-36) U/L ALT 38 H (6-35) U/L Alkaline Phosphatase 72 (38-126) U/L Total Protein 7.7 (6.3-8.2) g/dL Albumin 4.0 (3.5-5.1) g/dL Urine Color Yellow (Yellow) Urine Appearance Cloudy H (Clear) Urine pH 5.0 (5.0-9.0) Ur Specific [place] 1.025 (1.001-1.035) Urine Protein 1+ H (Negative) mg/dL Urine Glucose (UA) 3+ H (Negative) mg/dL Urine Ketones 1+ H (Negative) mg/dL Ur Blood (Man) 3+ H (Negative) Urine Nitrate Negative (Negative) Urine Bilirubin Negative (Negative) Urine Urobilinogen 1.0 (<2.0) mg/dL Add Ur Microanalysis Reviewed Leukocyte Esterase Rfl 1+ H (Negative) CLARISSA/UL Urine RBC >100 H (0-2) /hpf Urine WBC 21-50 H (0-3) /hpf Ur Squamous Epith Cells Few (Few) /hpf Urine Bacteria 1+ H /hpf Urine Casts 3-5 Hyaline Casts Present (None) /lpf Urine Yeast (Budding) Present H (None) /hpf POC Urine HCG, Qual Negative (Negative) Influenza A (RT-PCR) Negative (Negative) Influenza B (RT-PCR) Negative (Negative) RSV (RT-PCR) Negative (Negative) SARS-CoV-2 RNA (RT-PCR) Negative (Negative) 10/30/24 Range/Units 00:24 WBC (4.5-10.0) K/mm3 RBC (4.2-5.4) M/mm3 Hgb (12.0-15.0) g/dL Hct (37.0-47.0) % MCV (80-100) fl MCH (26-34) pg MCHC (32-36) g/dl RDW (11.5-14.5) % Plt Count (150-375) k/mm3 MPV (7.4-10.4) fl Immature Gran % (Auto) (0-0.5) % Neut % (Auto) (45.5-73.1) % Lymph % (Auto) (18.3-44.2) % [place] % (Auto) (2.6-8.5) % Eos % (Auto) (0-4.4) % Baso % (Auto) (0.2-1.2) % Lymph # (Auto) (0.9-3.2) K/mm3 [place] # (Auto) (0.1-0.6) K/mm3 Eos # (Auto) (0-0.3) K/mm3 Baso # (Auto) (0.0-0.1) K/mm3 Abs Immat Gran (auto) (0.00-0.031) K/mm3 Absolute Neuts (auto) (1.3-6.7) K/mm3 Absolute Nucleated RBC (0.0-0.012) K/mm3 Nucleated RBC % (0.0-0.2) % Sodium 133 L (137-145) mmol/L Potassium 3.6 (3.4-5.0) mmol/L Chloride 105 (98-107) mmol/L Carbon Dioxide 20 L (22-30) mmol/L Anion Gap 8 (4-12) mmol/L BUN 14 (7-17) mg/dL Creatinine 0.57 L (0.7-1.0) mg/dL Estim Creat Clear Calc 129 ml/min Estimated GFR > 60 (59 - ) Glucose 263 H (65-110) mg/dL Calcium 8.0 L (8.4-10.2) mg/dL Total Bilirubin (0.2-1.3) mg/dL AST (14-36) U/L ALT (6-35) U/L Alkaline Phosphatase (38-126) U/L Total Protein (6.3-8.2) g/dL Albumin (3.5-5.1) g/dL Urine Color (Yellow) Urine Appearance (Clear) Urine pH (5.0-9.0) Ur Specific [place] (1.001-1.035) Urine Protein (Negative) mg/dL Urine Glucose (UA) (Negative) mg/dL Urine Ketones (Negative) mg/dL Ur Blood (Man) (Negative) Urine Nitrate (Negative) Urine Bilirubin (Negative) Urine Urobilinogen (<2.0) mg/dL Add Ur Microanalysis Leukocyte Esterase Rfl (Negative) CLARISSA/UL Urine RBC (0-2) /hpf Urine WBC (0-3) /hpf Ur Squamous Epith Cells (Few) /hpf Urine Bacteria /hpf Urine Casts Hyaline Casts (None) /lpf Urine Yeast (Budding) (None) /hpf POC Urine HCG, Qual (Negative) Influenza A (RT-PCR) (Negative) Influenza B (RT-PCR) (Negative) RSV (RT-PCR) (Negative) SARS-CoV-2 RNA (RT-PCR) (Negative) ABG Data ABG results: 10/30/24 00:24 VBG pH 7.426 H* VBG pCO2 31.4 L VBG pO2 52.0 H VBG HCO3 20.2 L O2 Delivery Device Room air O2 Liters/Min 0.0 FiO2 21 Discharge Plan Discharge Clinical Impression: Acute viral syndrome, UTI (urinary tract infection), Nausea & vomiting Patient Disposition: Home Condition: Stable Instructions: Antibiotic Form, Urinary Tract Infection in Women (DC), Viral Syndrome (ED) Additional Instructions: You were seen emergency department for a fever. This is most likely a virus, however your urine did have some evidence of infection. Please complete the antibiotics as instructed. Use Tylenol for fevers and Zofran for nausea. Please continue taking your metformin as your diabetes does not appear to be controlled. If you feel your condition is getting worse or you develop new symptoms I want you to return to the ED for re-evaluation. Patient Language: Faroese Prescriptions: New cefdinir 300 mg capsule 300 mg PO Q12H Qty: 20 0RF acetaminophen 500 mg tablet 1,000 mg PO TID PRN (Reason: jennifer) 7 Days Qty: 42 0RF ondansetron 4 mg tablet,disintegrating 4 mg PO Q8H PRN (Reason: nausea and vomiting) Qty: 30 0RF No Action norethindrone (contraceptive) 0.35 mg tablet 0.3 mg PO DAILY valacyclovir 500 mg tablet 500 mg PO DAILY metformin 500 mg tablet simvastatin 40 mg tablet bupropion HCl 150 mg tablet extended release 24 hr PO cephalexin 500 mg capsule 500 mg PO Q6H 7 Days Qty: 28 0RF sertraline 50 mg tablet 50 mg PO DIRECTED Follow-up/Referrals: Sharita,NIVIA Benito [Primary Care Provider, Family Practice]
== END 2024-10-30 01:29 | disposition home or self-care (01) ==
PROVIDERS: Emergency Provider Emergency Medicine; PCP Physician Assistant
DX: B34.9 Viral infection, unspecified (principal); N39.0 Urinary tract infection, site not specified; R11.2 Nausea with vomiting, unspecified; Z20.822 Contact with and (suspected) exposure to COVID-19; E11.9 Type 2 diabetes mellitus without complications; T38.3X6A Underdosing of insulin and oral hypoglycemic [antidiabetic] drugs, initial encounter; E78.00 Pure hypercholesterolemia, unspecified; F41.9 Anxiety disorder, unspecified; F32.A Depression, unspecified; F17.290 Nicotine dependence, other tobacco product, uncomplicated; Z79.3 Long term (current) use of hormonal contraceptives; Z79.899 Other long term (current) drug therapy; R00.0 Tachycardia, unspecified; I45.2 Bifascicular block; R94.31 Abnormal electrocardiogram [ECG] [EKG]
CPT/HCPCS: 36415; 71045; 71250; 80048; 80053; 81001; 81025; 82803; 85025; 87086; 87637; 93005; 96361; 96365; 96374; 99284; A9270; J0696; J2405; J7030; J7120

== ENCOUNTER 2025-01-04 10:04 | Outpatient (CLI) | payer OTHER, SELFPAY ==
--- NOTE | ~2025-01-04 | XR_ITS ---
EXAMINATION: XR knee LT 3V, 01/04/2025 10:34 TEACHER AIDE HISTORY: acute pain of left knee MEDIAL SIDE COMPARISON: No comparisons available. Findings: No acute fracture or malalignment. No significant degenerative changes. Soft tissues unremarkable. Impression: No acute fracture or malalignment. Reviewed, dictated and finalized at location P. HER AIDE Impression: No acute fracture or malalignment.
== END 2025-01-04 10:05 | disposition home or self-care (01) ==
DX: M25.562 Pain in left knee (principal)
CPT/HCPCS: 73562